=== PATIENT | female | born 1965 | race African-American/Black ===

== ENCOUNTER 2020-12-24 03:01 | Emergency (ER) | payer OTHER, SELFPAY ==
[2020-12-24] MEDS ORDERED: AMOXicillin 250 MG CAP ONE (03:16)
[2020-12-24] MEDS ORDERED: Ketorolac Tromethamine 30 MG/ML VIAL ONE (03:16)
== END 2020-12-24 03:35 | disposition home or self-care (01) ==
LOC: BURERS 03:01
DX: K02.9 Dental caries, unspecified (principal)
CPT/HCPCS: 96372; 99283; J1885

== ENCOUNTER 2021-07-10 10:24 | Emergency (ER) | payer SELFPAY ==
[2021-07-10 10:49] LABS: Bilirubin Negative (Negative); Blood, Urine Small (Negative); Clarity Turbid (Clear); Glucose, Urine (Dipstick) Negative (Negative); Ketone, Urine Negative (Negative); Leukocyte Large (Negative); Nitrite Negative (Negative); Protein, Urine (Dipstick) Trace mg/dL (Neg-Trace); Urobilinogen 0.2 mg/dL (Less than 2)
[2021-07-10] MEDS ORDERED: cefTRIAXone\\ROCEPHIN 1 GM VIAL ONE (11:08)
[2021-07-10 11:11] LABS: Squamous Epithelial 0-3 HPF (0-3)
[2021-07-10 11:12] LABS: Bacteria/HPF 3+ HPF (None Seen); WBC/HPF 21-50 HPF (0-3)
== END 2021-07-10 11:18 | disposition home or self-care (01) ==
LOC: BURERS 10:24
DX: N10 Acute pyelonephritis (principal)
CPT/HCPCS: 81003; 81015; 87077; 87086; 87186; 96372; 99283; J0696